=== PATIENT | male | born 1985 | race Caucasian/White ===

== ENCOUNTER 2017-07-01 00:14 | Emergency (ER) | payer MEDICAID, OTHER ==
[~2017-07-01] VITALS: Ht 175.3 cm; Wt 83.9 kg
[2017-07-01 01:04] LABS: Basophils # (auto) 0.1 uL; Basophils % (auto) 1.2 % (0.0-2.0); Eosinophils # (auto) 1.1 uL; Eosinophils % (auto) 12.4 % (0.0-7.0); Hematocrit 43.4 % (41.0-53.0); Hemoglobin 14.9 g/dL (13.5-17.5); Lymphocytes # (auto) 2.6 uL; Lymphocytes % (auto) 30.3 % (10.0-50.0); Mean Corpuscular Hemoglobin 30.5 pg (28.0-32.0); Mean Corpuscular Hgb Conc. 34.4 g/dL (32.0-36.0); Mean Corpuscular Volume 88.5 fL (80.0-100.0); Mean Platelet Volume 7.4 fL (6.9-10.8); Monocytes # (auto) 0.6 uL; Monocytes % (auto) 6.6 % (0.0-12.0); Neutrophils # (auto) 4.2 uL; Neutrophils % (auto) 49.5 % (37.0-80.0); Nucleated Red Blood Cells % 0.1 %; Platelet Count (auto) 223 10^3/uL (140-450); Red Cell Distribution Width 12.9 % (11.8-14.3); White Blood Cell 8.5 10^3/uL (4.4-10.8)
[2017-07-01 01:20] LABS: Albumin 3.6 g/dL (3.4-5.0); Anion Gap 7 (5-15); Aspartate Aminotransferase 16 U/L (15-37); BUN/Creatinine Ratio 17.6; Blood Urea Nitrogen 16 mg/dL (7-18); Calcium 8.5 mg/dL (8.5-10.1); Carbon Dioxide 26 mmol/L (21-32); Chloride 109 mmol/L (98-107); GFR African American 123 mL/min; GFR Non-African American 102 mL/min; Glucose 92 mg/dL (74-106); Magnesium 2.4 mg/dL (1.6-2.6); Potassium 3.9 mmol/L (3.5-5.1); Sodium 142 mmol/L (136-145)
[2017-07-01 01:25] LABS: Alkaline Phosphatase 47 U/L (45-117); Bilirubin, Total 0.3 mg/dL (0.2-1.0); Total Protein 7.1 g/dL (6.4-8.2)
[2017-07-01 02:20] LABS: B-Type Natriuretic Peptide < 5.0 pg/mL (0-100); Temperature: 20.7 C (20.0-25.0)
[2017-07-01 04:05] VITALS: BP 118/77
== END 2017-07-01 05:32 | disposition home or self-care (01) ==
LOC: ER 00:22
DX: J06.9 Acute upper respiratory infection, unspecified (principal)
CPT/HCPCS: 36415; 71020; 80053; 83735; 83880; 84484; 85025; 85379; 93005

== ENCOUNTER 2018-03-05 09:58 | Emergency (ER) | payer MEDICAID, OTHER ==
[~2018-03-05] VITALS: Ht 172.7 cm; Wt 90.7 kg
[2018-03-05] MEDS ORDERED: cefTRIAXone SOD 1,000 MG VL IM ONE (10:45)
[2018-03-05] MEDS ORDERED: CLINDAMYCIN 600 MG/4 ML VL IM ONE (10:45)
[2018-03-05] MEDS ORDERED: LIDOCAINE 2% (LOCAL ANESTH.) PF 5ml SDV ONE (12:09)
[2018-03-05 12:38] VITALS: BP 118/78
== END 2018-03-05 12:51 | disposition home or self-care (01) ==
LOC: ER 09:58
DX: A64 Unspecified sexually transmitted disease (principal); F12.10 Cannabis abuse, uncomplicated
CPT/HCPCS: 96372; 99284; J0696

== ENCOUNTER 2019-09-09 17:07 | Inpatient (IN) | payer MEDICAID, OTHER ==
[~2019-09-09] VITALS: Ht 172.7 cm; Wt 88.1 kg
[2019-09-09 17:51] LABS: Basophils # (auto) 0 uL; Basophils % (auto) 0.3 % (0.0-2.0); Eosinophils # (auto) 0.2 uL; Eosinophils % (auto) 1.6 % (0.0-7.0); Hematocrit 41.6 % (41.0-53.0); Hemoglobin 13.9 g/dL (13.5-17.5); Lymphocytes % (auto) 18.5 % (10.0-50.0); Mean Corpuscular Hgb Conc. 33.4 g/dL (32.0-36.0); Mean Corpuscular Volume 89.7 fL (80.0-100.0); Monocytes # (auto) 0.6 uL; Monocytes % (auto) 5.5 % (0.0-12.0); Neutrophils # (auto) 7.9 uL; Neutrophils % (auto) 74.1 % (37.0-80.0); Nucleated Red Blood Cells % 0.1 %; Platelet Count (auto) 257 10^3/uL (140-450); Red Blood Cells 4.63 10^6/uL (4.5-5.90); Red Cell Distribution Width 13.6 % (11.8-14.3); White Blood Cell 10.6 10^3/uL (4.4-10.8)
[2019-09-09 18:11] LABS: Albumin 3.8 g/dL (3.4-5.0); Anion Gap 10 (5-15); Blood Urea Nitrogen 17 mg/dL (7-18); Calcium 8.6 mg/dL (8.5-10.1); Carbon Dioxide 24 mmol/L (21-32); Chloride 104 mmol/L (98-107); Glucose 122 mg/dL (74-106); Potassium 4.3 mmol/L (3.5-5.1); Sodium 138 mmol/L (136-145)
[2019-09-09 18:16] LABS: Alanine Aminotransferase 33 U/L (16-61); Alkaline Phosphatase 46 U/L (45-117); Aspartate Aminotransferase 21 U/L (15-37); BUN/Creatinine Ratio 15.7; Bilirubin, Total 1.8 mg/dL (0.2-1.0); GFR African American 99 mL/min; GFR Non-African American 82 mL/min; Total Protein 7.6 g/dL (6.4-8.2)
[2019-09-09] MEDS ORDERED: SODIUM CHLORIDE 0.9% 1,000 ML IVB ONE (18:16)
[2019-09-09] MEDS ORDERED: LORazepam 2MG/ML-1ML VIAL IV ONE (18:30)
[2019-09-09] MEDS ORDERED: ONDANSETRON HCL 4 MG/2 ML VIAL IV PRN (21:15)
[2019-09-09] MEDS ORDERED: TEMAZEPAM 15 MG CAP PO PRN (21:15)
[2019-09-09] MEDS ORDERED: HYDROcodone-ACET 5/325MG TAB PO PRN (21:15)
[2019-09-09] MEDS ORDERED: ACETAMINOPHEN 325 MG TAB PO PRN (21:15)
[2019-09-09] MEDS: D5W/SOD CHLO 0.9% 1,000 ML IV SCH (21:52)
[2019-09-09] MEDS: MORPHINE SULF INJ 2 MG/ML SYRINGE 1ML IV PRN (21:54)
[2019-09-09 22:26] LABS: Urine Bacteria NONE SEEN /hpf (None Seen); Urine Blood Negative /uL (Negative); Urine Mucus FEW (None Seen); Urine WBC 1 /hpf (0 - 3)
[2019-09-09 22:38] LABS: Amphetamine Screen, Urine POSITIVE (NEGATIVE); Barbiturate Scree,Urine NEGATIVE (NEGATIVE); Benzodiazephine Screen, Urine NEGATIVE (NEGATIVE); Cannabinoid Screen, Urine POSITIVE (NEGATIVE); Cocaine Screen, Urine POSITIVE (NEGATIVE); Phencyclidine Screen, Urine NEGATIVE (NEGATIVE)
[2019-09-09 22:46] LABS: Opiate Scree,Urine NEGATIVE (NEGATIVE)
--- NOTE | 2019-09-09 23:00 | NUR ---
MS admit from ER CECI CHRISTY admitted to [facility]. Patient oriented to Caity Cordoba, primary RN, Patient weighed by bedscale and encouraged to call if they need something. All questions and concerns addressed, patient verbalized understanding.Friend at bedside. Bed in lowest locked position, siderails upx 2, and call light within reach. Will continue to monitor Q1H and prn.
[2019-09-09 23:49] VITALS: BP 134/75
[2019-09-09 23:51] VITALS: BP 134/75
[2019-09-10 05:50] VITALS: BP 131/83
[2019-09-10 06:46] LABS: Basophils # (auto) 0 uL; Basophils % (auto) 0.3 % (0.0-2.0); Eosinophils # (auto) 0.1 uL; Eosinophils % (auto) 1.2 % (0.0-7.0); Hematocrit 35.3 % (41.0-53.0); Hemoglobin 12.3 g/dL (13.5-17.5); Lymphocytes # (auto) 1.9 uL; Lymphocytes % (auto) 21.6 % (10.0-50.0); Mean Corpuscular Hemoglobin 30.9 pg (28.0-32.0); Mean Corpuscular Hgb Conc. 34.8 g/dL (32.0-36.0); Mean Corpuscular Volume 88.8 fL (80.0-100.0); Monocytes # (auto) 0.7 uL; Monocytes % (auto) 7.8 % (0.0-12.0); Neutrophils # (auto) 5.9 uL; Neutrophils % (auto) 69.1 % (37.0-80.0); Nucleated Red Blood Cells % 0.1 %; Platelet Count (auto) 174 10^3/uL (140-450); Red Blood Cells 3.97 10^6/uL (4.5-5.90); Red Cell Distribution Width 13.5 % (11.8-14.3); White Blood Cell 8.6 10^3/uL (4.4-10.8)
[2019-09-10 07:03] LABS: Albumin 3.3 g/dL (3.4-5.0); Calcium 7.9 mg/dL (8.5-10.1)
[2019-09-10 07:06] LABS: BUN/Creatinine Ratio 19.5; Bilirubin, Total 1.2 mg/dL (0.2-1.0); Total Protein 6.5 g/dL (6.4-8.2)
[2019-09-10 09:11] VITALS: BP 136/76
[2019-09-10] MEDS ORDERED: PANTOPRAZOLE 40 MG TAB PO SCH (10:00)
[2019-09-10] MEDS: D5W/SOD CHLO 0.9% 1,000 ML IV SCH (10:28)
[2019-09-10 12:50] VITALS: BP 139/88
--- NOTE | 2019-09-10 14:00 | NUR ---
IV TO RENE #20 INFILTRATED. IV CATHETER DC'D, CATHETER INTACT. IV INSERTED TO RIGHT HAND #20. FLUSHING WELL. PT TOLERATED PROCEDURE WELL. IV FLUIDS INITIATED PER EMAR. CALL LIGHT WITHIN REACH.
[2019-09-10] MEDS: LACTATED RINGER'S 1,000 ML IV SCH ×2 (14:29→22:39)
[2019-09-10] MEDS: MORPHINE SULF INJ 2 MG/ML SYRINGE 1ML IV PRN (14:38)
[2019-09-10 16:54] VITALS: BP 134/80
[2019-09-10] MEDS ORDERED: MORPHINE SULF INJ 2 MG/ML SYRINGE 1ML IV PRN (17:00)
[2019-09-10] MEDS ORDERED: LORazepam 2MG/ML-1ML VIAL IV PRN (17:00)
--- NOTE | 2019-09-10 19:20 | NUR ---
Opening Shift Note Assumed care of patient, awake and alert. No S/S of distress/SOB or pain. Insructed on POC and to call for assist PRN, will continue to monitor for changes Q1hr and PRN. Signed: 09/11/19 at 0448 by JAIME CHEEMA SN <Co-Signature Required> Co-Signed: 09/11/19 at 0448 by Temo Gallardo RN
[2019-09-10] MEDS: PANTOPRAZOLE 40 MG TAB PO SCH (21:43)
[2019-09-10] MEDS: FOLIC ACID 1 MG, MULTIPLE VITAMIN 10 ML, MAGNESIUM SULF SDV 50% 8 MEQ, THIAMINE INJ 100... INJ SCH ×5 (21:49)
[2019-09-10 22:00] VITALS: BP 142/92
[2019-09-11 05:00] VITALS: BP 139/86
[2019-09-11] MEDS: LACTATED RINGER'S 1,000 ML IV SCH ×3 (06:45→22:15)
[2019-09-11 07:01] LABS: Albumin 3.1 g/dL (3.4-5.0); Calcium 7.6 mg/dL (8.5-10.1); Potassium 3.7 mmol/L (3.5-5.1)
[2019-09-11 07:04] LABS: BUN/Creatinine Ratio 12.3; Bilirubin, Total 1.5 mg/dL (0.2-1.0); Total Protein 6.5 g/dL (6.4-8.2)
[2019-09-11 07:05] LABS: Basophils # (auto) 0 uL; Basophils % (auto) 0.5 % (0.0-2.0); Eosinophils # (auto) 0.1 uL; Eosinophils % (auto) 1.7 % (0.0-7.0); Hematocrit 31.8 % (41.0-53.0); Hemoglobin 11.3 g/dL (13.5-17.5); Lymphocytes # (auto) 1.5 uL; Lymphocytes % (auto) 20.6 % (10.0-50.0); Mean Corpuscular Hgb Conc. 35.4 g/dL (32.0-36.0); Mean Corpuscular Volume 87.6 fL (80.0-100.0); Monocytes # (auto) 0.6 uL; Monocytes % (auto) 8.2 % (0.0-12.0); Neutrophils # (auto) 5.1 uL; Platelet Count (auto) 118 10^3/uL (140-450); Red Blood Cells 3.63 10^6/uL (4.5-5.90); Red Cell Distribution Width 13.4 % (11.8-14.3); White Blood Cell 7.4 10^3/uL (4.4-10.8)
--- NOTE | 2019-09-11 07:30 | NUR ---
Opening Note Received report from orthopedically impaired teacher RN. Patient is awake, alert and oriented x4. No signs or symptoms of distress noted at this time. Patient is on room air, respirations even and unlabored. Patient denies pain at this time. Patient has Florence catheter in place, patent and draining. Reviewed plan of care with patient, patient verbalized understanding. Bed in low and locked position, call light within reach. Will continue to monitor Q1 hour and PRN.
--- NOTE | 2019-09-11 07:55 | NUR ---
Florence Catheter Removed 250mls of dark yellow urine emptied from collection bag. Florence catheter removed with clean technique following deflation of balloon. Patient tolerated well with no complaints of pain. Patient instructed to notify this RN after first void. Patient verbalized understanding. Will continue to monitor Q1 hour and PRN.
[2019-09-11 09:00] VITALS: BP 158/80
[2019-09-11] MEDS: PANTOPRAZOLE 40 MG TAB PO SCH ×2 (09:12→22:15)
--- NOTE | 2019-09-11 09:30 | NUR ---
Dr. Christie at bedside Discussing plan of care with patient. New orders to advance patients diet to clear liquids. Patient verbalized understanding. Will continue to monitor Q1 hour and PRN.
[2019-09-11 09:57] LABS: Amylase 33 U/L (25-115); Lipase 84 U/L (73-393)
[2019-09-11] MEDS: FOLIC ACID 1 MG, MULTIPLE VITAMIN 10 ML, MAGNESIUM SULF SDV 50% 8 MEQ, THIAMINE INJ 100... INJ SCH ×5 (12:26)
[2019-09-11 13:00] VITALS: BP 141/81
[2019-09-11 17:00] VITALS: BP 133/83
--- NOTE | 2019-09-11 19:15 | NUR ---
Closing Note Report given to therapy tech RN. No signs or symptoms of distress noted at this time.
--- NOTE | 2019-09-11 19:30 | NUR ---
OPENING SHIFT NOTE ASSUMED CARE OF PATIENT AWAKE AND ALERT X4. FAMILY AT BEDSIDE. NO S/S OF DISTRESS OR SOB. BED AT LOWEST LOCKED POSITION, SIDERAILS UPX2, AND CALL LIGHT WITHIN REACH. UPDATED PATIENT ON POC AND TO CALL FOR ASSISTANCE PRN, VERBALIZED UNDERSTANDING. WILL CONTINUE TO MONITOR FOR CHANGES Q1H AND PRN.
[2019-09-11 22:00] VITALS: BP 118/85
--- NOTE | 2019-09-12 02:03 | NUR ---
IV removal/ insertion IV DC'd with clean technique, catheter fully intact. Pressure dressing applied to site. Patient tolerated well. Iv insertion lh 22g with clean technique,patient tolerated well.
[2019-09-12 05:00] VITALS: BP 120/74
[2019-09-12] MEDS: LACTATED RINGER'S 1,000 ML IV SCH ×3 (05:01→21:15)
[2019-09-12 05:10] LABS: Basophils # (auto) 0 uL; Basophils % (auto) 0.7 % (0.0-2.0); Eosinophils # (auto) 0.2 uL; Eosinophils % (auto) 2.9 % (0.0-7.0); Hematocrit 31.8 % (41.0-53.0); Hemoglobin 11.2 g/dL (13.5-17.5); Lymphocytes # (auto) 1.9 uL; Lymphocytes % (auto) 29.9 % (10.0-50.0); Mean Corpuscular Hgb Conc. 35.3 g/dL (32.0-36.0); Mean Corpuscular Volume 87.8 fL (80.0-100.0); Monocytes # (auto) 0.5 uL; Neutrophils # (auto) 3.7 uL; Neutrophils % (auto) 58.5 % (37.0-80.0); Nucleated Red Blood Cells % 0.1 %; Platelet Count (auto) 124 10^3/uL (140-450); Red Blood Cells 3.62 10^6/uL (4.5-5.90); Red Cell Distribution Width 13.2 % (11.8-14.3); White Blood Cell 6.4 10^3/uL (4.4-10.8)
[2019-09-12 05:27] LABS: Potassium 3.5 mmol/L (3.5-5.1)
[2019-09-12 05:32] LABS: Albumin 2.9 g/dL (3.4-5.0); BUN/Creatinine Ratio 7.6; Bilirubin, Total 1.4 mg/dL (0.2-1.0); Total Protein 6.6 g/dL (6.4-8.2)
[2019-09-12 09:00] VITALS: BP 126/87
--- NOTE | 2019-09-12 09:40 | NUR ---
Shower Patient provided supplies for shower, IV catheter secured. Patient instructed to call for assistance. Will continue to monitor Q1 hour and PRN.
[2019-09-12] MEDS: PANTOPRAZOLE 40 MG TAB PO SCH ×2 (10:01→22:00)
--- NOTE | 2019-09-12 10:42 | NUR ---
PATIENT OFF UNIT PATIENT TO RADIOLOGY FOR CT SCAN, TRANSPORTED VIA WHEELCHAIR. Signed: 09/12/19 at 1059 by JAIME JACK <Co-Signature Required> Co-Signed: 09/12/19 at 1059 by AVINASH LINDSAY RN RN
--- NOTE | 2019-09-12 10:57 | NUR ---
Patient back to room from radiology
[2019-09-12] MEDS: FOLIC ACID 1 MG, MULTIPLE VITAMIN 10 ML, MAGNESIUM SULF SDV 50% 8 MEQ, THIAMINE INJ 100... INJ SCH ×5 (11:37)
[2019-09-12 13:00] VITALS: BP 130/77
--- NOTE | 2019-09-12 16:59 | NUR ---
Patient Rounds Patient rounds done. Patient resting in bed, in supine position, respirations are even and unlabored; patient denies any pain. Call light within reach, brakes locked and bed in lowest position. Will continue to monitor. Signed: 09/12/19 at 1703 by JAIME JACK <Co-Signature Required> Co-Signed: 09/12/19 at 1703 by AVINASH LINDSAY RN RN
[2019-09-12 17:00] VITALS: BP 123/74
--- NOTE | 2019-09-12 19:40 | NUR ---
Opening Shift Note Assumed care of patient, awake, AAOx4. No S/S of distress/SOB or pain. On room air and ambulatory. Bed in lowest locked position, side rails up x2, call light within reach. Instructed on POC and to call for assist PRN, will continue to monitor for changes Q1hr and PRN.
[2019-09-12 22:00] VITALS: BP 112/71
[2019-09-13 05:00] VITALS: BP 130/73
[2019-09-13] MEDS: LACTATED RINGER'S 1,000 ML IV SCH (05:15)
--- NOTE | 2019-09-13 07:30 | NUR ---
Opening Shift Note Assuming care of patient at this time. Patient is awake and alert. Patient resting in bed. Patient verbalizes that he only has pain when ambulating. Patient shows no signs or symptoms of distress. Instructed patient on the plan of care for today and to call for assistance as needed. Call light within reach. Will continue to round hourly and as needed.
--- NOTE | 2019-09-13 09:00 | NUR ---
Shower Patient expresses desire to shower at this time. IV catheter secured. Patient instructed to call for assistance. Will continue to monitor Q1 hour and PRN.
[2019-09-13 09:24] VITALS: BP 116/73
[2019-09-13] MEDS: PANTOPRAZOLE 40 MG TAB PO SCH ×2 (09:42→22:32)
[2019-09-13] MEDS ORDERED: PANT40T PO (10:14)
--- NOTE | 2019-09-13 12:28 | NUR ---
Nutrition Assessment Notes please see attached link for complete assessment Est. Needs ABW [id number] kcal (23-25 kcal/kgBW), 80-88 gms pro (1.0-1.1 gms/kgBW). Will continue to monitor pertinent labs and reassess nutrient need prn Addendum: 09/13/19 at [address] Amended: Links added.
[2019-09-13 13:13] VITALS: BP 126/76
[2019-09-13] MEDS ORDERED: MULT-351 PO (14:22)
[2019-09-13 17:10] VITALS: BP 108/67
--- NOTE | 2019-09-13 19:29 | NUR ---
Closing Shift Note Patient resting in bed. No distress noted. Will endorse care to the film processing shift supervisor RN.
--- NOTE | 2019-09-13 21:14 | NUR ---
ENDORSED CARE TO NOC SHIFT RN ANMOL. PATIENT RESTING IN BED, NO ACUTE S/S OF DISTRESS, SOB OR PAIN NOTED.
--- NOTE | 2019-09-13 21:15 | NUR ---
Assumed care of patient Received report from Sandra PETERSON, Patient, awake and alert. No S/S of distress/SOB or pain. Instructed on POC and to call for assist PRN. Bed in lowest locked position, call light within reach, side rails up x2. Will continue to monitor for changes Q1hr and PRN.
[2019-09-13 21:49] VITALS: BP 111/61
[2019-09-14 05:11] VITALS: BP 122/78
--- NOTE | 2019-09-14 07:30 | NUR ---
OPENING SHIFT NOTE Assumed care of patient currently in bed alert and oriented. Patient denies any pain at this time, no s/s of SOB or distress noted/reported. Patient informed of POC for the day,patient verbalized understanding. Bed in low position, locked, and call light within reach. Will continue to monitor Q1hr and as needed. Signed: 09/14/19 at 1103 by JAIME WHITE <Co-Signature Required> Co-Signed: 09/14/19 at 1103 by AVINASH LINDSAY RN RN
[2019-09-14 08:46] VITALS: BP 130/80
[2019-09-14] MEDS: PANTOPRAZOLE 40 MG TAB PO SCH (09:34)
[2019-09-14] MEDS ORDERED: MULTIPLE VITAMINS W/ MINERALS TAB PO SCH (10:00)
--- NOTE | 2019-09-14 13:16 | NUR ---
Dr. Starr at bedside Discussing plan of care with patient and this RN. New order received for urine culture. Will implement new order. Patient to discharge later today. Will continue to monitor Q1 hour and PRN.
--- NOTE | 2019-09-14 14:32 | NUR ---
urine collected and sent to lab
[2019-09-14 14:37] VITALS: BP 131/78
--- NOTE | 2019-09-14 15:32 | NUR ---
Discharge Discharge instructions given as ordered. Encourage to follow up with primary care physician as instructed. All questions and concerns addressed. Patient verbalized understanding. Medication reconciliation form completed and copy given to patient. IV catheter removed, pressure dressing applied. New prescriptions provided to patient. Patient refused wheelchair, patient ambulated to private vehicle with all personal belongings. No signs or symptoms of distress noted at this time.
== END 2019-09-14 15:30 | disposition home or self-care (01) | DRG 282 ==
LOC: ER 17:07 → OVERFLOW 17:08 → WEST WING 22:49
PROVIDERS: ADMIT Nurse Practitioner; ATTEND Internal Medicine
DX: K85.90 Acute pancreatitis without necrosis or infection, unspecified (principal); F14.10 Cocaine abuse, uncomplicated; J45.909 Unspecified asthma, uncomplicated; Z79.899 Other long term (current) drug therapy
CPT/HCPCS: 36415; 74176; 80053; 80307; 81001; 82150; 83690; 84484; 85025; 87086; 93005; 96374; 96375; G0378; J2405; J7042

== ENCOUNTER 2019-09-18 02:55 | Emergency (ER) | payer MEDICAID ==
[~2019-09-18] VITALS: Ht 172.7 cm; Wt 88.5 kg
[~2019-09-18 02:55] MED LIST: MULT-351 PO; PANT40T PO
[2019-09-18] MEDS ORDERED: ONDANSETRON HCL 4 MG/2 ML VIAL IV ONE ×2 (03:15→03:30)
[2019-09-18] MEDS ORDERED: SODIUM CHLORIDE 0.9% 1,000 ML IVB ONE (03:16)
[2019-09-18 03:23] LABS: Basophils # (auto) 0 uL; Basophils % (auto) 0.5 % (0.0-2.0); Eosinophils # (auto) 0.1 uL; Eosinophils % (auto) 2.4 % (0.0-7.0); Hematocrit 36.2 % (41.0-53.0); Hemoglobin 12.5 g/dL (13.5-17.5); Lymphocytes # (auto) 1.5 uL; Lymphocytes % (auto) 23.7 % (10.0-50.0); Mean Corpuscular Hemoglobin 30.2 pg (28.0-32.0); Mean Corpuscular Hgb Conc. 34.5 g/dL (32.0-36.0); Mean Corpuscular Volume 87.5 fL (80.0-100.0); Monocytes # (auto) 0.4 uL; Neutrophils # (auto) 4.1 uL; Neutrophils % (auto) 66.4 % (37.0-80.0); Nucleated Red Blood Cells % 0.1 %; Platelet Count (auto) 354 10^3/uL (140-450); Red Blood Cells 4.14 10^6/uL (4.5-5.90); Red Cell Distribution Width 12.9 % (11.8-14.3); White Blood Cell 6.2 10^3/uL (4.4-10.8)
[2019-09-18] MEDS ORDERED: MORPHINE SULFATE 4 MG/ML SYR/VIAL IV ONE ×2 (03:30→06:00)
[2019-09-18] MEDS ORDERED: IOHEXOL 300 MG/ML 100ML BOTTLE IJ ONE (03:31)
[2019-09-18 03:40] LABS: Albumin 3.4 g/dL (3.4-5.0); Calcium 8.5 mg/dL (8.5-10.1); Potassium 3.8 mmol/L (3.5-5.1)
[2019-09-18 03:43] LABS: BUN/Creatinine Ratio 12.2; Bilirubin, Total 1.1 mg/dL (0.2-1.0); Total Protein 8.2 g/dL (6.4-8.2)
[2019-09-18 04:47] LABS: Blood Alcohol < 3.0 mg/dL (0-5); Magnesium 2.2 mg/dL (1.6-2.6)
[2019-09-18 05:13] LABS: INR 1.01 (0.9-1.15); Partial Thromboplastin Time 27.2 sec (23.64-32.05)
[2019-09-18 05:55] LABS: Urine Bacteria FEW /hpf (None Seen); Urine Blood Negative /uL (Negative); Urine Mucus FEW (None Seen); Urine Specific Gravity 1.038 (1.001-1.035); Urine WBC 4 /hpf (0 - 3)
[2019-09-18 06:17] LABS: Alcohol, Urine < 3.0 mg/dL (0-5); Amphetamine Screen, Urine NEGATIVE (NEGATIVE); Barbiturate Scree,Urine NEGATIVE (NEGATIVE); Benzodiazephine Screen, Urine NEGATIVE (NEGATIVE); Cannabinoid Screen, Urine POSITIVE (NEGATIVE); Cocaine Screen, Urine NEGATIVE (NEGATIVE); Opiate Scree,Urine POSITIVE (NEGATIVE); Phencyclidine Screen, Urine NEGATIVE (NEGATIVE)
[2019-09-18 07:22] VITALS: BP 155/95
== END 2019-09-18 07:43 | disposition short-term general hospital (02) ==
LOC: ER 03:00
DX: S36.039A Unspecified laceration of spleen, initial encounter (principal); K66.1 Hemoperitoneum; J45.909 Unspecified asthma, uncomplicated; Z88.6 Allergy status to analgesic agent; F12.10 Cannabis abuse, uncomplicated; F14.10 Cocaine abuse, uncomplicated; X58.XXXA Exposure to other specified factors, initial encounter; Y93.89 Activity, other specified; Y99.8 Other external cause status; Y92.89 Other specified places as the place of occurrence of the external cause
CPT/HCPCS: 36415; 74177; 80053; 80307; 80320; 81001; 82150; 83690; 83735; 85025; 85610; 85730; 96374; 96375; 96376; 99285; J2270; J2405; J7030; Q9967

== ENCOUNTER 2020-03-25 18:37 | Emergency (ER) | payer MEDICAID ==
[~2020-03-25] VITALS: Ht 175.3 cm; Wt 86.2 kg
[2020-03-25 18:50] VITALS: BP 110/81
[2020-03-25] MEDS ORDERED: methylPREDNISolone SOD SUCC 125 MG/2 ML VL IM ONE (22:00)
== END 2020-03-25 22:24 | disposition home or self-care (01) ==
LOC: ER 18:38
DX: S83.92XA Sprain of unspecified site of left knee, initial encounter (principal); J45.909 Unspecified asthma, uncomplicated; Z88.6 Allergy status to analgesic agent; X50.1XXA Overexertion from prolonged static or awkward postures, initial encounter; Y93.39 Activity, other involving climbing, rappelling and jumping off; Y92.89 Other specified places as the place of occurrence of the external cause; Y99.8 Other external cause status
CPT/HCPCS: 29505; 73562; 99283; J2930